=== PATIENT | female | born 1965 | race Two or more races ===

== ENCOUNTER → 2024-08-13 | Day surgery (SDC) | payer MEDICAID ==
[2024-08-07 11:25] LABS: Hematocrit 38.7 % (36.0-46.0); Hemoglobin 13.0 g/dL (12.2-16.2); Mean Corpuscular Hemoglobin 26.3 pg (28.0-32.0); Mean Corpuscular Volume 78.0 fL (80.0-100.0); Nucleated Red Blood Cells % 0.1 %
[2024-08-07 11:42] LABS: INR 0.97 (0.9-1.15); Partial Thromboplastin Time 25.4 SEC (24.5-34.5); Prothrombin Time 10.3 sec (9.3-11.8)
[2024-08-07 11:46] LABS: Urine Protein, UAD Negative (Negative)
[2024-08-07 12:08] LABS: Alanine Aminotransferase 21 U/L (7-40); Albumin 4.8 g/dL (3.2-4.8); Alkaline Phosphatase 109 U/L (46-116); Anion Gap 10 (5-15); BUN/Creatinine Ratio 14.7 (10.0-20.0); Bilirubin, Total 0.3 mg/dL (0.2-1.0); Blood Urea Nitrogen 15 mg/dL (9-23); Calcium 10.9 mg/dL (8.7-10.4); Carbon Dioxide 30 mmol/L (20-31); Chloride 102 mmol/L (98-107); Glucose 87 mg/dL (74-106); Potassium 3.9 mmol/L (3.5-5.1); Sodium 142 mmol/L (136-145); Total Protein 7.6 g/dL (5.7-8.2)
[~2024-08-13] VITALS: Ht 167.6 cm; Wt 93.0 kg
[~2024-08-13] MED LIST: HYDROmorphone HCL 2 MG/ML VL/or syr IV PRN; IBUP-1454 PO; KETOROLAC TROMETH 30 MG/ML 1ML VIAL IV ONE; KETOROLAC TROMETH 30 MG/ML 1ML VIAL ONE; LIDOCAINE 2% (LOCAL ANESTH.) PF 5ml SDV ONE; METOCLOPRAMIDE HCL 5MG/ml INJ 2ml VIAL IV ONE; METOCLOPRAMIDE HCL 5MG/ml INJ 2ml VIAL ONE; MIDAZOLAM HCL 2MG/2ML 2ml VIAL (1mg/ml) ONE; OMEP20TA PO; ONDANSETRON HCL 4 MG/2 ML VIAL IV ONE; ONDANSETRON HCL 4 MG/2 ML VIAL ONE; PROPOFOL 10 MG/ML 20 ML IV ONE; ceFAZolin 2 GM/D5W50ml 50 ML IV ONE; fentaNYL CITRATE 100 MCG/2 ML VL ONE; hydrALAZINE HCL 20 MG/ML VL IV PRN
--- NOTE | 2024-08-13 14:31 | DVHOP2 ---
Operative Report - 2 Report Details Date: 08/13/24 Preop Diagnosis: 1. Right foot plantar fasciitis 2. Right foot bone spur 3. Right foot pain Postop Diagnosis: Same as preop Surgeon: Becky Benitez MD Anesthesiologist: See anesthesia Anesthesia: General Consent: The patient was informed of the risks and benefits of the procedure. These include but are not limited to complications of anesthesia, postoperative infection, incomplete relief of symptoms, recurrence of symptoms, damage to blood vessels, nerves and tendons, deep venous thrombosis, pulmonary embolism and possible need for repeat surgery in the future. Complications: None Estimated Blood Loss: Minimal Fluids: See anesthesia Findings: Consistent with the diagnosis Indications for Surgery: Worsening right foot pain Name of Procedure Performed 1. Right foot tenex plantar fascitiomy (60122) 2. Right foot bone spur excision (63955) Procedure Details Procedure Details: PRE-PROCEDURE INFORMATION: In the pre-op holding area, the extremity to be operated on was clearly marked and the patient verified correct laterality of the marking. The patient was transferred to the OR table and placed in a supine position. A timeout was performed in which identification of the correct patient, procedure, location, and materials was done. The right foot and leg were prepped and draped in normal sterile fashion. DESCRIPTION OF PROCEDURE: Attention was directed to the right medial aspect of the heel. Using a 15. Blade, a small stab incision was made. Using a hemostat the incision was deepened to the level of the plantar fascia and bone. Using a Tenex device, and ultrasound, the device was used to break up the scar tissue. Using a power rasp, the bone spur was excised. After adequate debridement of the plantar fascia, it was noted on ultrasound that the thickness of the plantar fascia had improved. All surgical wounds were irrigated copiously with saline and closed in layers with the aforementioned suture material. A dry sterile dressing was placed on the surgical extremity. The patient was placed in a cam boot POSTOPERATIVE INFORMATION: The patient tolerated the above noted procedure and anesthesia well and was transferred to the PACU with vital signs stable, and vascular status intact with capillary refill intact to all digits. Postoperative instructions reviewed in detail with the patient with written instructions provided. Patient will return to clinic in approximately 10-14 days for first postoperative visit. Patient has the number of the clinic and was instructed to call prior to that time should any problems, questions, or concerns arise. Condition Good Disposition Home BECKY BENITEZ DPM Aug 13, 2024 14:31
[2024-08-13] MEDS: LIDOCAINE 1% HCL (LOCAL ANESTH.) INJ 20ML MDV ONE (15:02)
[2024-08-13 15:10] VITALS: PULSE 86; RESP 14; O2SAT 100
[2024-08-13 15:45] VITALS: BP 108/77; PULSE 90; RESP 15; O2SAT 98
== END | disposition home or self-care (01) ==
LOC: SUR 11:50
PROVIDERS: ATTEND Podiatrist
DX: M72.2 Plantar fascial fibromatosis (principal); M67.01 Short Achilles tendon (acquired), right ankle; M77.51 Other enthesopathy of right foot and ankle; M54.32 Sciatica, left side; K21.9 Gastro-esophageal reflux disease without esophagitis; Z79.899 Other long term (current) drug therapy; Z98.51 Tubal ligation status; Z98.890 Other specified postprocedural states
CPT/HCPCS: 28119; 36415; 80053; 81001; 85025; 85610; 85730; J0690; J1885; J2003; J2250; J2405; J2704; J2765; J3010